=== PATIENT | female | born 1950 | race Caucasian/White ===

== ENCOUNTER → 2022-12-10 14:15 | Outpatient (CLI) | payer MEDICARE, SELFPAY ==
[2022-12-10 15:05] LABS: Basophils # 0.1 K/mm3 (0-0.2); Basophils % 0.9 % (0.1-2.0); Eosinophils # 0.5 K/mm3 (0.0-0.4); Eosinophils % 5.2 % (0.1-12.0); Hematocrit 39.5 % (37.0-47.0); Hemoglobin 12.7 g/dL (12.2-16.2); Lymphocytes # 3.6 K/mm3 (0.7-4.5); Lymphocytes % 36.7 % (10-50); Mean Corpuscular HGB Conc 32.2 g/dL (31.8-35.4); Mean Corpuscular Hemoglobin 27.6 pg (27.0-31.2); Mean Corpuscular Volume 85.7 fl (81-99); Mean Platelet Volume 7.8 fl (7.4-10.4); Monocytes # 0.7 K/mm3 (0.1-1.0); Monocytes % 6.9 % (1.7-9.3); Neutrophils % 50.4 % (37.0-80.0); Platelet Count 333 K/mm3 (142-424); Red Blood Count 4.61 M/mm3 (4.20-5.40); Red Cell Distribution Width 13.2 % (11.5-17.5); White Blood Count 9.8 K/mm3 (4.8-10.8)
[2022-12-10 15:13] LABS: Alanine Aminotransferase 33 U/L (12-78); Alkaline Phosphatase 100 U/L (38-126); Aspartate Amino Transferase 42 U/L (14-36); Bilirubin,Direct 0.2 mg/dl (0.0-0.4); Bilirubin,Indirect 0.4 mg/dL (0.0-0.9); Bilirubin,Total 0.6 mg/dl (0.2-1.3); Bilirubin,Unconjugated 0.4 mg/dL (0.0-1.1); Blood Urea Nitrogen 10 mg/dl (7-17); Calcium 9.3 mg/dl (8.4-10.2); Carbon Dioxide 29 mmol/L (22.0-30.0); Chloride 106 mmol/L (98-107); Chol/HDL Ratio 2.3 (1-3.5); Cholesterol 174 mg/dl (140-200); Estimated Glomerular Filt Rate 62 ml/min (>60); GFR (African American) 75 ML/MIN (>60); Glucose 105 mg/dl (74-100); HDL Cholesterol 76 mg/dl (40-60); Magnesium 2.1 mg/dl (1.6-2.3); Sodium 138 mmol/L (136-145); Total Protein,Serum 6.6 g/dl (6.3-8.2); Triglycerides 168 mg/dl (30-150); VLDL Cholesterol 34 mg/dL (0-40)
[2022-12-10 15:23] LABS: Direct LDL Cholesterol 63.36 mg/dL (100-129)
[2022-12-10 15:24] LABS: Troponin I < 0.01 ng/ml (0.00-0.034)
[2022-12-10 15:43] LABS: Thyroid Stimulating Hormone 1.45 uIU/mL (0.465-4.68)
== END ==
PROVIDERS: PCP Family Medicine; Visit Provider Nurse Practitioner Family
DX: R00.1 Bradycardia, unspecified (principal); R00.2 Palpitations; R06.00 Dyspnea, unspecified; R07.9 Chest pain, unspecified; R94.31 Abnormal electrocardiogram [ECG] [EKG]
CPT/HCPCS: 36415; 80048; 80061; 80076; 83735; 84439; 84443; 84484; 85025; 93225

== ENCOUNTER → 2022-12-31 06:13 | Outpatient (CLI) | payer MEDICARE, SELFPAY ==
--- NOTE | 2022-12-31 06:13 | CA_ITS ---
APPROVED REPORT Exam: Pharmacologic Technologist: Melvina Guerrero Ht: 5 ft 6 in Wt: 166 lbs BSA: 1.85 m2 HR: 76 bpm BP: 152/68 mmHg Indications: Chest pain, Palpitations, Dyspnea Medical History Medications: Losartan,,,,, Atorvastatin,,,,, Multivitamin,,,,, PlecanATIDE,,,,, Stress Test Details Test: LEXISCAN HR Resting HR: 57 bpm Max Heart Rate (APMHR): 150.178570 bpm Max HR Achieved: 109 bpm Target HR (85% APMHR): 127.783555 bpm % of APMHR: 72.67 Recovery HR: 76 bpm BP Resting BP: 155.0/70.0 mmHg Max BP: 164.0/75.0 mmHg Recovery BP: 152.0/68.0 mmHg ECG Clinical Exercise duration: 04:00 min Highest Stage Achieved: Exercise capacity: 1.0 METs Stress ECG Conclusion Symptoms: Shortness of air. No chest pain. Arrhythmias/Ectopy: Occasional PAC/PVC ST-T Changes: < 1.[address] changes. Test Summary REST . . . . . . . Resting REST 13:08 . . 57 . 155/ 70 . . Stage 1 . . . . . . . Myoview Injected Stage 1 01:00 . . 105 . . . . Stage 2 01:00 . . 101 . . . . Stage 3 01:00 . . 80 . 160/ 76 . . Stage 4 01:00 . . 81 . 153/ 75 . Stop exercise at 04:00 RECOVERY 01:00 . . 80 . 151/ 65 . . RECOVERY 01:47 . . 76 . 152/ 68 . . Electronically signed by : Isma Jack MD 12/31/2022 10:51:45
--- NOTE | 2022-12-31 06:13 | NM_ITS ---
APPROVED REPORT Exam: Nuclear Stress Test Indication: DYSRHYTHMIA, HYPERTENSION, HYPERLIPIDEMIA, C.P., SOB, PALPITATIONS Patient Location: Outpatient Stress Tech: Melvina Guerrero ME Tech:Trinity Horta ARRT RT (R)(N)(M) Ht: 5 ft 6 in Wt: 160 lbs Bra Size: 36C HR: 43 bpm BP: 155/70 mmHg BSA: 1.82 m2 TID: 1.05 BMI: 25.8 History: DYSRHYTHMIA, HYPERTENSION, HYPERLIPIDEMIA, C.P., SOB, PALPITATIONS Procedure: Patient received 0.4 mg of intravenous Lexiscan, resting heart rate 43 bpm, resting blood pressure 155/70 mmHg, with Lexiscan maximum heart rate achieved was 99 bpm which is % of the maximum predicted heart rate and blood pressure was 160/76 mmHg. With Lexiscan, patient denied any complaint of chest pain. Electrocardiogram Resting electrocardiogram shows sinus rhythm, with Lexiscan there is less than 1.[address] segment depression noted from the baseline EKG. The EKG portion of the Lexiscan is nondiagnostic. Cardiac Stress and Resting SPECT Images: Cardiac Stress and Resting SPECT images were obtained using technetium 99m Myoview 30.2 mCi stress and 10.32 mCi at rest. Gated SPECT analysis of segmental wall motion and calculation of the ejection fraction also done. Prone images were also obtained. Cardiac stress and rest SPECT images show uniform myocardial activity without segmental perfusion abnormality, computer derived ejection fraction is 58% with no regional wall motion abnormality, right ventricle is normal size and contractility. Conclusion: 1. The EKG portion of the Lexiscan is nondiagnostic. 2. No scintigraphic evidence of reversible ischemia seen, computer derived ejection fraction is 58% with no regional wall motion abnormality, right ventricle is normal size and contractility. 3. Normal Lexiscan Myoview study. Electronically signed by : Isma Jack MD 12/31/2022 10:57:02
--- NOTE | 2022-12-31 06:13 | CA_ITS ---
APPROVED REPORT EXAM: Comprehensive 2D, Doppler, and color-flow Echocardiogram [employer] Supervisor: Alanis Sams RDCS Ht: 5 ft 6 in Wt: 166lbs BSA: 1.85 BP: 128/70 mmHg Indications: SOA CP 2D Dimensions LVOT 1.60 cm (M/F) 1.5-2.5 M-Mode Dimensions RVDd 2.03 cm (0.9-2.6) LA Diam 3.42 cm (1.9-4.0) LVDd 5.07 cm (3.5-5.7) Ao Diam 3.14 cm (2.0-3.7) LVDs 3.47 cm (3.5-5.7) IVSd 0.59 cm (0.6-1.1) PWd 0.72 cm (0.6-1.1) EF (Teich) 59.20% FS 31.60% EDV (Teich) 122.10 mL ESV (Teich) 49.80 mL LV Diastology E Decel Time 227.00 (160-240 msec) E/A Ratio 0.7 MED E' 6.20 (< 7 cm/sec) E'/MED E' Ratio 9.05 (>14) LAT E' 7.10 (<10 cm/sec) E/LAT E' Ratio 7.90 (>14) Mitral Valve MV E Max Franki. 56.00 (40-130 cm/s) MV A Velocity 80.00 (40-130 cm/s) E/A Ratio 0.70 MV Decel. Time 227.00 (160-240 ms) MV PHT 66.00 ms Left Ventricle Left atrium is normal size left ventricle is normal size there is no concentric left ventricular hypertrophy, estimated ejection fraction 55% with no regional wall motion abnormality, Doppler evidence of impaired LV relaxation seen without tissue Doppler evidence of late left atrial pressure. Right Ventricle Right atrium and right ventricular normal size and contractility. Aortic Valve Aortic valve is minimally thickened and fibrosed there is no aortic stenosis aortic insufficiency. Mitral Valve Mitral valve is grossly normal, there is no mitral stenosis, there is trace mitral regurgitation. Tricuspid Valve Tricuspid valve grossly normal, there is trace tricuspid regurgitation, tricuspid regurgitation jet velocity is inadequate for calculation of the right ventricular systolic pressure. Pulmonic Valve Pulmonic valve is poorly visualized. Great Vessels Aortic root is normal size. Inferior vena cava is normal size with normal inspiratory collapse. Pericardium No significant pericardial effusion noted. Conclusion 1. Normal left ventricular size preserved left ventricular systolic function, estimated ejection fraction 55% with no regional wall motion abnormality, Doppler evidence of impaired LV relaxation seen without tissue Doppler evidence of late left atrial pressure. 2. Trace mitral and tricuspid regurgitation. 3. No significant pericardial effusion noted. 4. Inferior vena cava is normal size with normal inspiratory collapse. Electronically signed by : Isma Jack MD 01/01/2023 06:00:16
== END ==
PROVIDERS: PCP Family Medicine; Visit Provider Nurse Practitioner Family
DX: R00.1 Bradycardia, unspecified (principal); R00.2 Palpitations; R06.00 Dyspnea, unspecified; R07.9 Chest pain, unspecified; R94.31 Abnormal electrocardiogram [ECG] [EKG]
CPT/HCPCS: 78452; 93017; 93270; 93306; A9502; J2785